=== PATIENT | male | born 1990 | race Two or more races ===

== ENCOUNTER 2020-06-09 02:05 | Emergency (ER) | payer OTHER, SELFPAY ==
[~2020-06-09] VITALS: Ht 172.7 cm; Wt 83.8 kg
--- NOTE | 2020-06-09 02:23 | NUR ---
PT STATES SMOKE SOME MARIJUANA AROUND 2229 AND SOME COCAINE. STATES HEART IS RACING AND FELT LIKE HE WAS GOING TO PASS OUT AFTER TAKING A SHOWER AND SMELT BLOOD.
--- NOTE | 2020-06-09 02:27 | NUR ---
PT STATES HE HAS MONITORED HIS HEART WITH WATCH AND NOTICED IT WAS IN THE 120'S THEN DROPPED AND WAS CONCERNED. PT APPEARS ANXIOUS.
[2020-06-09 02:47] VITALS: BP 119/65
[2020-06-09] MEDS ORDERED: LORazepam 1MG TABLET ONE (02:56)
[2020-06-09] MEDS ORDERED: LORazepam 1MG TABLET PO ONE (03:00)
--- NOTE | 2020-06-09 03:29 | NUR ---
Patient given discharge instructions and they have confirmed that they understand the instructions. Patient ambulatory with steady gait. No question at time of discharge.
== END 2020-06-09 03:33 | disposition home or self-care (01) ==
LOC: ED 03:29
DX: F41.1 Generalized anxiety disorder (principal); R00.2 Palpitations; F14.10 Cocaine abuse, uncomplicated; R94.31 Abnormal electrocardiogram [ECG] [EKG]
CPT/HCPCS: 93005; 99283

== ENCOUNTER → 2020-06-27 | Outpatient (CLI) | payer OTHER | END | disposition home or self-care (01) | LOC: CVU 15:25 | PROVIDERS: ATTEND Internal Medicine Cardiovascular Disease | DX: R00.2 Palpitations (principal); R07.9 Chest pain, unspecified | CPT/HCPCS: 93306 ==